=== PATIENT | male | born 1950 | race Caucasian/White ===

== ENCOUNTER 2023-01-11 12:09 | Inpatient (IN) | payer MEDICARE, MEDICAID ==
[~2023-01-11] VITALS: Ht 172.7 cm; Wt 98.0 kg
[~2023-01-11 12:09] MED LIST: CHOL10002 PO; HYDR12.5 PO; IBUP-1985 PO; OMEP20CA15 PO; POTA10CA85 PO; TRAM50TA2 PO
[2023-01-11 13:42] LABS: BASOPHILS % (AUTO) 0.6 % (0-1); EOSINOPHILS # (AUTO) 0.1 X10'3 (0-0.9); EOSINOPHILS % (AUTO) 1.6 % (0-6); HEMATOCRIT 37.8 % (42.0-52.0); HEMOGLOBIN 13.1 g/dl (14.0-17.9); LYMPHOCYTES # (AUTO) 0.7 X10'3 (1.1-4.8); LYMPHOCYTES % (AUTO) 13.9 % (21-51); MEAN CORPUSCULAR HEMOGLOBIN 32.3 PG (27.0-31.0); MEAN CORPUSCULAR HGB CONC 34.7 g/dL (33.0-36.5); MEAN CORPUSCULAR VOLUME 93.1 FL (78-98); MEAN PLATELET VOLUME 7.3 FL (7.4-10.4); MONOCYTES # (AUTO) 0.7 X10'3 (0-0.9); MONOCYTES % (AUTO) 14.2 % (2-12); NEUTROPHILS # (AUTO) 3.5 X10'3 (1.8-7.7); NEUTROPHILS % (AUTO) 69.7 % (42-75); PLATELET COUNT 182 X10'3 (140-440); RED BLOOD COUNT 4.06 X10'6 (4.70-6.10); RED CELL DISTRIBUTION WIDTH 15.1 % (11.5-14.5)
[2023-01-11 13:55] LABS: ALANINE AMINOTRANSFERASE 49 U/L (12-78); ALBUMIN 2.4 G/DL (3.4-5.0); ALBUMIN/GLOBULIN RATIO 0.5 (1.1-1.5); ALKALINE PHOSPHATASE 284 IU/L (46-116); ANION GAP 7 (8-16); ASPARTATE AMINO TRANSFERASE 61 U/L (10-37); BILIRUBIN,TOTAL 3.1 MG/DL (0.1-1.0); BLOOD UREA NITROGEN 23 MG/DL (7-18); BUN/CREATININE RATIO 23.5 (10.0-20.0); CALCIUM 8.9 MG/DL (8.5-10.1); CHLORIDE 98 MMOL/L (99-107); CREATININE 0.98 MG/DL (0.60-1.10); GLUCOSE 88 MG/DL (70-104); LIPASE 47 U/L (16-77); MAGNESIUM 1.7 MG/DL (1.5-2.4); POTASSIUM 3.3 MMOL/L (3.5-5.1); SODIUM 135 MMOL/L (135-145); TOTAL CARBON DIOXIDE 29.8 MMOL/L (24-32); TOTAL PROTEIN 6.9 G/DL (6.4-8.2); eCRCL 68 ML/MIN; eGFR 76 ML/MIN
[2023-01-11 13:59] LABS: ETHANOL < 10 MG/DL (<10)
[2023-01-11] MEDS ORDERED: iohexol 300mg/ml 100ml inj. ONE (14:22)
[2023-01-11 14:55] LABS: BILIRUBIN,URINE SMALL (Neg); CLARITY,URINE CLEAR (Clear); COLOR,URINE YELLOW (Yellow); GLUCOSE, URINE NEGATIVE (Neg); KETONES,URINE 15 mg/dl (Neg); LEUKOCYTE ESTERASE ,URINE NEGATIVE (Neg); NITRITES, URINE NEGATIVE (Neg); OCCULT BLOOD,URINE TRACE-INTACT (Neg); PROTEIN,URINE TRACE mg/dl (Neg)
[2023-01-11 14:58] LABS: UA COLLECTION TYPE URINAL
[2023-01-11 14:59] LABS: BACTERIA,URINE NONE SEEN /HPF (Neg); MUCUS STRANDS FEW /LPF (Neg); RBC,URINE 0-2 /HPF (0-2); SQUAMOUS EPITHELIAL CELL,UR NONE SEEN /LPF (FEW); WBC,URINE 0-4 /HPF (0-4)
[2023-01-11] MEDS ORDERED: LIDOcaine 1% 30ml preserv. free vial SQ STA (15:11)
[2023-01-11 15:49] LABS: APTT 33 SECONDS (22-32); INR 1.3 INR; PROTHROMBIN TIME 13.3 SECONDS (9.0-12.0)
[2023-01-11] MEDS ORDERED: magnesium Cl slow-release 64mg tablet PO PRN (16:15)
[2023-01-11] MEDS ORDERED: morphine 2 MG/ML inj. syringe IV PRN (16:15)
[2023-01-11] MEDS ORDERED: potassium Cl 20 mEq SR tablet PO PRN (16:15)
[2023-01-11] MEDS ORDERED: acetaminophen 325mg tablet PO PRN ×2 (16:15)
[2023-01-11] MEDS ORDERED: magnesium 4gm in 100ml NS 100 ML IV PRN (16:15)
[2023-01-11] MEDS ORDERED: potassium Cl 40MEQ/1/2NS 520ml 520 ML IV PRN (16:15)
[2023-01-11] MEDS ORDERED: magnesium 2GM in 50ml NS 50 ML IV PRN (16:15)
[2023-01-11] MEDS ORDERED: ondansetron/PF 4mg/2ml inj IV PRN (16:15)
[2023-01-11] MEDS ORDERED: LORazepam 2 mg/ml vial IV PRN (16:20)
[2023-01-11] MEDS ORDERED: CefTRIAXone 2gm/D5W 50ml BAG 50 ML IV ONE (16:20)
[2023-01-11] MEDS ORDERED: LORazepam 1 MG tablet PO PRN (16:20)
[2023-01-11] MEDS ORDERED: albumin (human) 25% 100 ML IV solution IV ONE (16:55)
[2023-01-11] MEDS: furosemide 40mg/4ml inj IV SCH ×3 (17:00→23:30)
[2023-01-11] MEDS: spironolactone 25 MG tablet PO SCH (18:10)
[2023-01-11] MEDS: heparin, porcine 5000 units/ml vial SQ SCH ×2 (20:00→23:30)
[2023-01-11 21:11] LABS: GLUCOSE,BODY FLUID 100 MG/DL; LDH,BODY FLUID 43 U/L
[2023-01-11 21:23] LABS: TOTAL PROTEIN,BODY FLUID < 2.0 G/DL
[2023-01-11 22:00] VITALS: BP 107/64; PULSE 91; RESP 16; TEMP 98.6; O2SAT 96
[2023-01-11 22:30] LABS: BFAPPEAR CLEAR; BFCOLOR YELLOW; BFSOURCE ASCITES FLD; BFVOLUME 20 ML
[2023-01-11 22:31] LABS: BF MESOTHELIAL CELLS FEW; BF RBC COUNT 11 /CU MM; BF WBC COUNT 17 /CU MM (0-1000); LYMPHOCYTES,BODY FLUID 79 %; MONOCYTES,BODY FLUID 14 %; NEUTROPHILS,BODY FLUID 7 %
[2023-01-11 23:00] VITALS: RESP 18; O2SAT 97
[2023-01-12] VITALS (7 sets, daily range): BP systolic 95–121; BP diastolic 55–76; PULSE 74–101; RESP 13–21; TEMP 97.3–98.7; O2SAT 95–99
[2023-01-12 07:56] LABS: BASOPHILS % (AUTO) 0.7 % (0-1); EOSINOPHILS # (AUTO) 0.1 X10'3 (0-0.9); EOSINOPHILS % (AUTO) 1.9 % (0-6); HEMATOCRIT 37.9 % (42.0-52.0); HEMOGLOBIN 12.8 g/dl (14.0-17.9); LYMPHOCYTES # (AUTO) 0.7 X10'3 (1.1-4.8); LYMPHOCYTES % (AUTO) 14.1 % (21-51); MEAN CORPUSCULAR HEMOGLOBIN 31.4 PG (27.0-31.0); MEAN CORPUSCULAR HGB CONC 33.9 g/dL (33.0-36.5); MEAN CORPUSCULAR VOLUME 92.6 FL (78-98); MEAN PLATELET VOLUME 7.7 FL (7.4-10.4); MONOCYTES # (AUTO) 0.7 X10'3 (0-0.9); MONOCYTES % (AUTO) 14.1 % (2-12); NEUTROPHILS # (AUTO) 3.7 X10'3 (1.8-7.7); NEUTROPHILS % (AUTO) 69.2 % (42-75); PLATELET COUNT 170 X10'3 (140-440); RED BLOOD COUNT 4.09 X10'6 (4.70-6.10); RED CELL DISTRIBUTION WIDTH 15.6 % (11.5-14.5); WHITE BLOOD COUNT 5.3 X10'3 (4.5-11.0)
[2023-01-12] MEDS ORDERED: thiamine 100mg tablet PO SCH (08:00)
[2023-01-12] MEDS ORDERED: folic acid 1mg tablet PO SCH (08:00)
[2023-01-12] MEDS ORDERED: multivitamins, therapeutics tablet PO SCH (08:00)
[2023-01-12 08:07] LABS: ALANINE AMINOTRANSFERASE 56 U/L (12-78); ALBUMIN 2.4 G/DL (3.4-5.0); ALBUMIN/GLOBULIN RATIO 0.6 (1.1-1.5); ALKALINE PHOSPHATASE 269 IU/L (46-116); ANION GAP 7 (8-16); ASPARTATE AMINO TRANSFERASE 79 U/L (10-37); BILIRUBIN,TOTAL 2.5 MG/DL (0.1-1.0); BLOOD UREA NITROGEN 21 MG/DL (7-18); BUN/CREATININE RATIO 22.3 (10.0-20.0); CALCIUM 8.5 MG/DL (8.5-10.1); CHLORIDE 98 MMOL/L (99-107); CREATININE 0.94 MG/DL (0.60-1.10); GLUCOSE 88 MG/DL (70-104); MAGNESIUM 1.6 MG/DL (1.5-2.4); PHOSPHORUS 2.8 MG/DL (2.3-4.5); SODIUM 135 MMOL/L (135-145); TOTAL CARBON DIOXIDE 29.7 MMOL/L (24-32); TOTAL PROTEIN 6.5 G/DL (6.4-8.2); eCRCL 71 ML/MIN; eGFR 79 ML/MIN
[2023-01-12 08:09] LABS: POTASSIUM 2.9 MMOL/L (3.5-5.1)
[2023-01-12] MEDS: pantoprazole 40mg Tablet.DR PO SCH (08:32)
[2023-01-12] MEDS: potassium Cl 20 mEq SR tablet PO PRN ×3 (08:32→17:51)
[2023-01-12] MEDS: heparin, porcine 5000 units/ml vial SQ SCH ×2 (08:33→20:45)
[2023-01-12] MEDS: furosemide 40mg/4ml inj IV SCH ×2 (10:43→20:44)
[2023-01-12] MEDS: spironolactone 25 MG tablet PO SCH (10:48)
[2023-01-12] MEDS ORDERED: TRAM50TA2 PO (15:57)
[2023-01-12] MEDS ORDERED: OMEP40CA21 PO (15:57)
[2023-01-12] MEDS ORDERED: HYDR12.55 (15:57)
[2023-01-12] MEDS: traMADol 50MG tablet PO PRN (17:54)
[2023-01-13] VITALS (9 sets, daily range): BP systolic 107–134; BP diastolic 59–80; PULSE 64–85; RESP 15–18; TEMP 97.9–98.1; O2SAT 93–99
[2023-01-13] MEDS: traMADol 50MG tablet PO PRN (00:04)
[2023-01-13 07:28] LABS: BASOPHILS % (AUTO) 0.6 % (0-1); EOSINOPHILS # (AUTO) 0.1 X10'3 (0-0.9); EOSINOPHILS % (AUTO) 1.8 % (0-6); HEMOGLOBIN 12.4 g/dl (14.0-17.9); LYMPHOCYTES # (AUTO) 0.9 X10'3 (1.1-4.8); LYMPHOCYTES % (AUTO) 14.4 % (21-51); MEAN CORPUSCULAR HEMOGLOBIN 32.1 PG (27.0-31.0); MEAN CORPUSCULAR HGB CONC 34.5 g/dL (33.0-36.5); MEAN PLATELET VOLUME 7.6 FL (7.4-10.4); MONOCYTES % (AUTO) 15.7 % (2-12); NEUTROPHILS # (AUTO) 4.1 X10'3 (1.8-7.7); NEUTROPHILS % (AUTO) 67.5 % (42-75); PLATELET COUNT 148 X10'3 (140-440); RED BLOOD COUNT 3.87 X10'6 (4.70-6.10)
[2023-01-13 07:53] LABS: ALANINE AMINOTRANSFERASE 68 U/L (12-78); ALBUMIN 2.2 G/DL (3.4-5.0); ALBUMIN/GLOBULIN RATIO 0.6 (1.1-1.5); ALKALINE PHOSPHATASE 261 IU/L (46-116); ANION GAP 5 (8-16); ASPARTATE AMINO TRANSFERASE 80 U/L (10-37); BILIRUBIN,TOTAL 2.3 MG/DL (0.1-1.0); BLOOD UREA NITROGEN 21 MG/DL (7-18); BUN/CREATININE RATIO 21.4 (10.0-20.0); CALCIUM 8.2 MG/DL (8.5-10.1); CHLORIDE 100 MMOL/L (99-107); CREATININE 0.98 MG/DL (0.60-1.10); GLUCOSE 101 MG/DL (70-104); MAGNESIUM 1.4 MG/DL (1.5-2.4); PHOSPHORUS 2.7 MG/DL (2.3-4.5); POTASSIUM 3.7 MMOL/L (3.5-5.1); SODIUM 133 MMOL/L (135-145); TOTAL CARBON DIOXIDE 28.3 MMOL/L (24-32); TOTAL PROTEIN 6.2 G/DL (6.4-8.2); eCRCL 68 ML/MIN; eGFR 76 ML/MIN
[2023-01-13 09:02] LABS: PLATELET ESTIMATE NORMAL; TOTAL CELLS COUNTED 100
[2023-01-13] MEDS: pantoprazole 40mg Tablet.DR PO SCH (09:26)
[2023-01-13] MEDS: furosemide 40mg/4ml inj IV SCH (09:27)
[2023-01-13] MEDS: spironolactone 25 MG tablet PO SCH (09:27)
[2023-01-13] MEDS: heparin, porcine 5000 units/ml vial SQ SCH (09:28)
[2023-01-13] MEDS ORDERED: albumin (human) 25% 100 ML IV solution IV ONE (11:00)
[2023-01-13] MEDS ORDERED: SPIR25TA PO (14:53)
[2023-01-13] MEDS ORDERED: FURO20TA4 PO (14:53)
[2023-01-13] MEDS ORDERED: MULT-1085 PO (14:55)
[2023-01-14 08:17] LABS: AFP,SERUM, TUMOR MARKER 76.9 ng/mL (0.0-8.4)
[2023-01-14 14:44] LABS: HEP B CORE AB, IGM Negative (Negative); HEPATITIS C VIRUS ANTIBODY Reactive (Non Reactive)
[2023-01-15 21:42] LABS: HBV IU/mL HBV DNA not detected IU/mL (.)
== END 2023-01-13 16:10 | disposition home or self-care (01) | DRG 436 ==
LOC: ER 12:09 → ED HOLD 16:19 → PCU 3S 21:45
PROVIDERS: ADMIT Internal Medicine; ATTEND Internal Medicine
PROC: BW211ZZ Computerized Tomography (CT Scan) of Abdomen and Pelvis using Low Osmolar Contrast (ICD-10-PCS; 2023-01-11)
PROC: 0W9G3ZZ Drainage of Peritoneal Cavity, Percutaneous Approach (ICD-10-PCS; principal; 2023-01-13)
DX: C22.0 Liver cell carcinoma (principal); E44.0 Moderate protein-calorie malnutrition; K76.6 Portal hypertension; N17.9 Acute kidney failure, unspecified; R18.8 Other ascites; K74.69 Other cirrhosis of liver; R74.01 Elevation of levels of liver transaminase levels; K76.9 Liver disease, unspecified; I12.9 Hypertensive chronic kidney disease with stage 1 through stage 4 chronic kidney disease, or unspecified chronic kidney disease; N18.2 Chronic kidney disease, stage 2 (mild); E87.6 Hypokalemia; E87.8 Other disorders of electrolyte and fluid balance, not elsewhere classified; F10.11 Alcohol abuse, in remission; F19.11 Other psychoactive substance abuse, in remission; K80.20 Calculus of gallbladder without cholecystitis without obstruction; Z88.2 Allergy status to sulfonamides; Z87.891 Personal history of nicotine dependence
CPT/HCPCS: 36415; 49083; 74177; 76700; 80053; 80320; 81001; 82103; 82140; 82945; 82977; 83605; 83615; 83690; 83735; 84100; 84157; 85007; 85025; 85610; 85651; 85730; 86705; 86803; 87040; 87070; 87075; 87081; 87517; 87522; 89051; 93005; 97116; 97161; 97530; 99285; G0378; J0696; J1644; J1940; J3490; J7040; P9047; Q9967

== ENCOUNTER 2023-01-24 11:47 | Emergency (ER) | payer MEDICARE, MEDICAID ==
[~2023-01-24] VITALS: Ht 175.3 cm; Wt 83.1 kg
[~2023-01-24 11:47] MED LIST changes: -CHOL10002 PO; +FURO20TA4 PO; -HYDR12.5 PO; -IBUP-1985 PO; +MULT-1085 PO; -POTA10CA85 PO; +SPIR25TA PO
--- NOTE | 2023-01-24 13:48 | NUR ---
AWAITING MSE FROM PROVIDER.
--- NOTE | 2023-01-24 14:02 | NUR ---
[facility] COMPLETED PATIENT TO FTL.
--- NOTE | 2023-01-24 14:11 | NUR ---
FTL FULL, PT IN MAIN LOBBY AWAITING ROOM.
[2023-01-24] MEDS ORDERED: LIDOcaine 1% W/epiNEPHrine 1:100,000 20ml vial SQ ONE (19:05)
[2023-01-24] MEDS ORDERED: LIDOCAINE 1%/EPI 1:100,000 inj. 10 ML multi-dose vial SQ ONE (19:15)
[2023-01-24 19:38] LABS: BASOPHILS # (AUTO) 0.1 X10'3 (0-0.2); EOSINOPHILS # (AUTO) 0.1 X10'3 (0-0.9); EOSINOPHILS % (AUTO) 0.6 % (0-6); HEMATOCRIT 39.6 % (42.0-52.0); HEMOGLOBIN 13.7 g/dl (14.0-17.9); LYMPHOCYTES % (AUTO) 10.8 % (21-51); MEAN CORPUSCULAR HEMOGLOBIN 32.2 PG (27.0-31.0); MEAN CORPUSCULAR HGB CONC 34.5 g/dL (33.0-36.5); MEAN CORPUSCULAR VOLUME 93.3 FL (78-98); MEAN PLATELET VOLUME 7.9 FL (7.4-10.4); MONOCYTES # (AUTO) 1.2 X10'3 (0-0.9); MONOCYTES % (AUTO) 12.3 % (2-12); NEUTROPHILS # (AUTO) 7.1 X10'3 (1.8-7.7); NEUTROPHILS % (AUTO) 75.3 % (42-75); PLATELET COUNT 312 X10'3 (140-440); RED BLOOD COUNT 4.25 X10'6 (4.70-6.10); RED CELL DISTRIBUTION WIDTH 16.5 % (11.5-14.5); WHITE BLOOD COUNT 9.4 X10'3 (4.5-11.0)
[2023-01-24 20:02] LABS: ALANINE AMINOTRANSFERASE 180 U/L (12-78); ALBUMIN 2.2 G/DL (3.4-5.0); ALKALINE PHOSPHATASE 528 IU/L (46-116); ANION GAP 8 (8-16); ASPARTATE AMINO TRANSFERASE 91 U/L (10-37); BILIRUBIN,TOTAL 11.7 MG/DL (0.1-1.0); BLOOD UREA NITROGEN 25 MG/DL (7-18); BUN/CREATININE RATIO 25.3 (10.0-20.0); CALCIUM 8.8 MG/DL (8.5-10.1); CHLORIDE 94 MMOL/L (99-107); CREATININE 0.99 MG/DL (0.60-1.10); GLUCOSE 96 MG/DL (70-104); LIPASE 48 U/L (16-77); SODIUM 129 MMOL/L (135-145); TOTAL CARBON DIOXIDE 27.5 MMOL/L (24-32); eCRCL 69 ML/MIN; eGFR 75 ML/MIN
[2023-01-24 20:06] LABS: ALBUMIN/GLOBULIN RATIO 0.4 (1.1-1.5); POTASSIUM 3.6 MMOL/L (3.5-5.1); TOTAL PROTEIN 7.1 G/DL (6.4-8.2)
[2023-01-24] MEDS ORDERED: albumin (human) 25% 100 ML IV solution IV ONE (20:20)
[2023-01-24 22:53] VITALS: BP 115/62; PULSE 80; RESP 16; TEMP 97.8; O2SAT 100
--- NOTE | 2023-01-25 04:09 | NUR ---
I have reviewed and agree with all assessments performed and documented by Meri.
== END 2023-01-24 22:54 | disposition home or self-care (01) ==
LOC: ER 11:48
DX: R18.8 Other ascites (principal); K74.60 Unspecified cirrhosis of liver; I10 Essential (primary) hypertension; Z88.2 Allergy status to sulfonamides; Z79.899 Other long term (current) drug therapy
CPT/HCPCS: 36415; 49083; 80053; 82140; 83690; 85025; 96365; 99285; J7050; P9047

== ENCOUNTER 2023-02-10 17:32 | Emergency (ER) | payer MEDICARE, MEDICAID ==
[~2023-02-10] VITALS: Ht 172.7 cm; Wt 83.0 kg
[2023-02-10 19:02] LABS: BASOPHILS # (AUTO) 0.1 X10'3 (0-0.2); BASOPHILS % (AUTO) 0.8 % (0-1); EOSINOPHILS # (AUTO) 0.1 X10'3 (0-0.9); EOSINOPHILS % (AUTO) 1.7 % (0-6); HEMATOCRIT 31.9 % (42.0-52.0); HEMOGLOBIN 10.9 g/dl (14.0-17.9); LYMPHOCYTES # (AUTO) 0.8 X10'3 (1.1-4.8); LYMPHOCYTES % (AUTO) 13.2 % (21-51); MEAN CORPUSCULAR HEMOGLOBIN 33.2 PG (27.0-31.0); MEAN CORPUSCULAR HGB CONC 34.2 g/dL (33.0-36.5); MEAN CORPUSCULAR VOLUME 97.2 FL (78-98); MEAN PLATELET VOLUME 7.3 FL (7.4-10.4); MONOCYTES # (AUTO) 1.1 X10'3 (0-0.9); MONOCYTES % (AUTO) 17.3 % (2-12); NEUTROPHILS # (AUTO) 4.1 X10'3 (1.8-7.7); PLATELET COUNT 158 X10'3 (140-440); RED BLOOD COUNT 3.28 X10'6 (4.70-6.10); RED CELL DISTRIBUTION WIDTH 18.8 % (11.5-14.5); WHITE BLOOD COUNT 6.2 X10'3 (4.5-11.0)
[2023-02-10 19:11] LABS: ALANINE AMINOTRANSFERASE 92 U/L (12-78); ALKALINE PHOSPHATASE 470 IU/L (46-116); ANION GAP 5 (8-16); ASPARTATE AMINO TRANSFERASE 81 U/L (10-37); BILIRUBIN,TOTAL 3.8 MG/DL (0.1-1.0); BLOOD UREA NITROGEN 29 MG/DL (7-18); BUN/CREATININE RATIO 28.4 (10.0-20.0); CALCIUM 8.4 MG/DL (8.5-10.1); CHLORIDE 98 MMOL/L (99-107); CREATININE 1.02 MG/DL (0.60-1.10); GLUCOSE 78 MG/DL (70-104); LIPASE 46 U/L (16-77); POTASSIUM 3.4 MMOL/L (3.5-5.1); SODIUM 130 MMOL/L (135-145); TOTAL CARBON DIOXIDE 26.9 MMOL/L (24-32); eCRCL 65 ML/MIN; eGFR 72 ML/MIN
[2023-02-10 19:24] LABS: ALBUMIN/GLOBULIN RATIO 0.4 (1.1-1.5); TOTAL PROTEIN 7.5 G/DL (6.4-8.2)
[2023-02-10 20:28] LABS: BILIRUBIN,URINE NEGATIVE (Neg); CLARITY,URINE CLEAR (Clear); GLUCOSE, URINE NEGATIVE (Neg); KETONES,URINE NEGATIVE (Neg); LEUKOCYTE ESTERASE ,URINE NEGATIVE (Neg); NITRITES, URINE NEGATIVE (Neg); OCCULT BLOOD,URINE NEGATIVE (Neg); PROTEIN,URINE NEGATIVE (Neg)
[2023-02-10 20:38] LABS: COLOR,URINE DARK YELLOW (Yellow); UA COLLECTION TYPE CLN CATCH MIDSTREAM
[2023-02-10 21:19] VITALS: BP 111/63; PULSE 72; RESP 16; TEMP 98.6; O2SAT 98
[2023-02-10 22:14] LABS: ANISOCYTOSIS 2+; PLATELET ESTIMATE NORMAL; TARGET CELLS FEW; TOTAL CELLS COUNTED 100
== END 2023-02-10 21:21 | disposition home or self-care (01) ==
LOC: ER 17:33
DX: R18.8 Other ascites (principal); I10 Essential (primary) hypertension; K74.60 Unspecified cirrhosis of liver; Z88.8 Allergy status to other drugs, medicaments and biological substances; Z88.1 Allergy status to other antibiotic agents; Z79.899 Other long term (current) drug therapy
CPT/HCPCS: 36415; 80053; 81003; 82140; 83690; 85007; 85025; 99283

== ENCOUNTER 2023-02-11 07:09 | Emergency (ER) | payer MEDICARE, MEDICAID ==
[~2023-02-11] VITALS: Ht 177.8 cm; Wt 90.2 kg
[2023-02-11 08:19] LABS: BASOPHILS % (AUTO) 0.8 % (0-1); EOSINOPHILS # (AUTO) 0.1 X10'3 (0-0.9); EOSINOPHILS % (AUTO) 1.7 % (0-6); HEMATOCRIT 30.7 % (42.0-52.0); HEMOGLOBIN 10.6 g/dl (14.0-17.9); LYMPHOCYTES # (AUTO) 0.7 X10'3 (1.1-4.8); LYMPHOCYTES % (AUTO) 11.7 % (21-51); MEAN CORPUSCULAR HEMOGLOBIN 33.4 PG (27.0-31.0); MEAN CORPUSCULAR HGB CONC 34.5 g/dL (33.0-36.5); MEAN CORPUSCULAR VOLUME 96.8 FL (78-98); MEAN PLATELET VOLUME 7.3 FL (7.4-10.4); NEUTROPHILS # (AUTO) 4.1 X10'3 (1.8-7.7); NEUTROPHILS % (AUTO) 68.8 % (42-75); PLATELET COUNT 165 X10'3 (140-440); RED BLOOD COUNT 3.17 X10'6 (4.70-6.10); RED CELL DISTRIBUTION WIDTH 19.4 % (11.5-14.5); WHITE BLOOD COUNT 5.9 X10'3 (4.5-11.0)
[2023-02-11 08:35] LABS: BILIRUBIN,URINE NEGATIVE (Neg); CLARITY,URINE CLEAR (Clear); COLOR,URINE YELLOW (Yellow); GLUCOSE, URINE NEGATIVE (Neg); KETONES,URINE NEGATIVE (Neg); LEUKOCYTE ESTERASE ,URINE NEGATIVE (Neg); NITRITES, URINE NEGATIVE (Neg); OCCULT BLOOD,URINE NEGATIVE (Neg); PROTEIN,URINE NEGATIVE (Neg)
[2023-02-11 08:37] LABS: ALANINE AMINOTRANSFERASE 84 U/L (12-78); ALBUMIN 1.9 G/DL (3.4-5.0); ALKALINE PHOSPHATASE 441 IU/L (46-116); ANION GAP 2 (8-16); ASPARTATE AMINO TRANSFERASE 70 U/L (10-37); BILIRUBIN,TOTAL 3.5 MG/DL (0.1-1.0); BLOOD UREA NITROGEN 29 MG/DL (7-18); BUN/CREATININE RATIO 26.6 (10.0-20.0); CALCIUM 8.2 MG/DL (8.5-10.1); CHLORIDE 100 MMOL/L (99-107); CREATININE 1.09 MG/DL (0.60-1.10); GLUCOSE 131 MG/DL (70-104); LIPASE 46 U/L (16-77); POTASSIUM 3.6 MMOL/L (3.5-5.1); SODIUM 131 MMOL/L (135-145); TOTAL CARBON DIOXIDE 28.8 MMOL/L (24-32); eCRCL 65 ML/MIN; eGFR 67 ML/MIN
[2023-02-11 08:41] LABS: ALBUMIN/GLOBULIN RATIO 0.4 (1.1-1.5); TOTAL PROTEIN 6.5 G/DL (6.4-8.2)
[2023-02-11 08:53] LABS: UA COLLECTION TYPE CLN CATCH MIDSTREAM
[2023-02-11] MEDS ORDERED: piperacillin/tazo 4.5gm/100ml 100 ML IV ONE (09:08)
[2023-02-11 10:03] LABS: ANISOCYTOSIS 2+; PLATELET ESTIMATE NORMAL; TOTAL CELLS COUNTED 100
[2023-02-11 10:08] LABS: APTT 30 SECONDS (22-32); INR 1.2 INR; PROTHROMBIN TIME 12.5 SECONDS (9.0-12.0)
[2023-02-11] MEDS ORDERED: albumin (human) 25% 100 ML IV solution IV ONE (15:15)
[2023-02-11 17:08] VITALS: BP 101/61; PULSE 85; RESP 16; TEMP 98.2; O2SAT 97
== END 2023-02-11 17:10 | disposition home or self-care (01) ==
LOC: ER 07:10
DX: R18.8 Other ascites (principal)
CPT/HCPCS: 36415; 49082; 80053; 81003; 83605; 83690; 85007; 85025; 85610; 85730; 87040; 99285; P9047

== ENCOUNTER 2023-02-19 15:25 | Inpatient (IN) | payer MEDICARE, MEDICAID ==
[~2023-02-19] VITALS: Ht 170.2 cm; Wt 83.0 kg
[2023-02-19 17:03] LABS: BASOPHILS # (AUTO) 0.1 X10'3 (0-0.2); BASOPHILS % (AUTO) 0.5 % (0-1); EOSINOPHILS % (AUTO) 0.1 % (0-6); HEMATOCRIT 33.8 % (42.0-52.0); HEMOGLOBIN 11.2 g/dl (14.0-17.9); LYMPHOCYTES % (AUTO) 7.6 % (21-51); MEAN CORPUSCULAR HEMOGLOBIN 32.3 PG (27.0-31.0); MEAN CORPUSCULAR HGB CONC 33.2 g/dL (33.0-36.5); MEAN CORPUSCULAR VOLUME 97.5 FL (78-98); MEAN PLATELET VOLUME 7.6 FL (7.4-10.4); MONOCYTES # (AUTO) 2.3 X10'3 (0-0.9); MONOCYTES % (AUTO) 17.7 % (2-12); NEUTROPHILS # (AUTO) 9.5 X10'3 (1.8-7.7); NEUTROPHILS % (AUTO) 74.1 % (42-75); PLATELET COUNT 308 X10'3 (140-440); RED BLOOD COUNT 3.47 X10'6 (4.70-6.10); RED CELL DISTRIBUTION WIDTH 19.3 % (11.5-14.5); WHITE BLOOD COUNT 12.8 X10'3 (4.5-11.0)
[2023-02-19 17:18] LABS: ALANINE AMINOTRANSFERASE 410 U/L (12-78); ALBUMIN 1.8 G/DL (3.4-5.0); ALKALINE PHOSPHATASE 405 IU/L (46-116); ANION GAP 10 (8-16); ASPARTATE AMINO TRANSFERASE 465 U/L (10-37); BILIRUBIN,TOTAL 5.4 MG/DL (0.1-1.0); BLOOD UREA NITROGEN 107 MG/DL (7-18); BUN/CREATININE RATIO 32.8 (10.0-20.0); CALCIUM 8.5 MG/DL (8.5-10.1); CHLORIDE 94 MMOL/L (99-107); CREATININE 3.26 MG/DL (0.60-1.10); GLUCOSE 137 MG/DL (70-104); LIPASE 35 U/L (16-77); SODIUM 126 MMOL/L (135-145); TOTAL CARBON DIOXIDE 22.3 MMOL/L (24-32); eCRCL 19 ML/MIN; eGFR 19 ML/MIN
[2023-02-19 17:22] LABS: ALBUMIN/GLOBULIN RATIO 0.4 (1.1-1.5); POTASSIUM 5.5 MMOL/L (3.5-5.1); TOTAL PROTEIN 6.8 G/DL (6.4-8.2)
[2023-02-19 17:29] LABS: APTT 32 SECONDS (22-32); INR 1.3 INR; PROTHROMBIN TIME 13.3 SECONDS (9.0-12.0)
[2023-02-19 17:45] LABS: ANISOCYTOSIS 2+; PLATELET ESTIMATE NORMAL; TOTAL CELLS COUNTED 100
[2023-02-19 20:52] LABS: PRO BRAIN NATRIURETIC PEPTIDE 1074 PG/ML (0-125)
[2023-02-19 22:09] LABS: BILIRUBIN,URINE SMALL (Neg); CLARITY,URINE CLEAR (Clear); GLUCOSE, URINE NEGATIVE (Neg); KETONES,URINE NEGATIVE (Neg); LEUKOCYTE ESTERASE ,URINE NEGATIVE (Neg); NITRITES, URINE NEGATIVE (Neg); OCCULT BLOOD,URINE NEGATIVE (Neg); PH,URINE 5.5 (4.8-8.0); PROTEIN,URINE NEGATIVE (Neg); UROBILINOGEN,URINE 0.2 E.U/dL (0.2-1.0)
[2023-02-19 22:13] LABS: COLOR,URINE DARK YELLOW (Yellow); UA COLLECTION TYPE URINAL
[2023-02-19] MEDS ORDERED: ondansetron/PF 4mg/2ml inj IV PRN (22:25)
[2023-02-20] VITALS (7 sets, daily range): BP systolic 97–106; BP diastolic 51–63; PULSE 71–87; RESP 13–24; TEMP 97–97.5; O2SAT 96–99
[2023-02-20] MEDS ORDERED: morphine 4 MG/ML inj SYRINge IV ONE (02:20)
[2023-02-20] MEDS ORDERED: ondansetron 4mg rapidly disintigrating tab PO PRN (04:40)
[2023-02-20] MEDS ORDERED: ondansetron/PF 4mg/2ml inj IV PRN (04:40)
[2023-02-20] MEDS ORDERED: magnesium hydroxide 30ml (MOM) UD suspension PO PRN (04:40)
[2023-02-20] MEDS ORDERED: bisacodyl 10mg suppository rectal RC PRN (04:40)
[2023-02-20] MEDS ORDERED: mag hydrox/Alum hydrox/simeth 30ml oral suspension PO PRN (04:40)
[2023-02-20] MEDS ORDERED: diphenhydrAMINE 50 mg/ml inj IV PRN (04:40)
[2023-02-20] MEDS ORDERED: acetaminophen 650mg rectal suppository RC PRN (04:40)
[2023-02-20] MEDS ORDERED: acetaminophen 325mg tablet PO PRN ×2 (04:40)
[2023-02-20] MEDS ORDERED: diphenhydrAMINE 25mg capsule PO PRN (04:40)
[2023-02-20] MEDS ORDERED: sodium polystyrene sulfonate 15gm/60ml oral suspension PO ONE (04:45)
[2023-02-20] MEDS ORDERED: dextrose 50%-water 50ml dispensing syringe IV ONE (04:45)
[2023-02-20] MEDS ORDERED: CALCIUM GLUC 1gm/50ml NACL,iso 50 ML IV PRN (04:45)
[2023-02-20] MEDS ORDERED: insulin regular, human 10 units/0.1 ml syringe IV ONE (04:45)
[2023-02-20] MEDS ORDERED: sodium bicarbonate (8.4%) 1 mEq/ml syringe IV ONE (04:45)
[2023-02-20] MEDS: normal saline 1000ml 1,000 ML IV SCH ×2 (04:56→14:00)
[2023-02-20 05:39] LABS: THYROID STIMULATING HORMONE 1.24 ulU/ml (0.34-4.50)
[2023-02-20 05:57] LABS: PHOSPHORUS 6.7 MG/DL (2.3-4.5); POTASSIUM 5.3 MMOL/L (3.5-5.1)
[2023-02-20] MEDS ORDERED: docusate sod 100mg capsule PO SCH (08:00)
[2023-02-20] MEDS: CefTRIAXone/D5W-Rocephin 1gm 50 ML IV SCH (08:17)
[2023-02-20] MEDS: morphine 2 MG/ML inj. syringe IV PRN ×2 (11:30→20:28)
[2023-02-20] MEDS ORDERED: LIDOcaine 1% (10mg/ml)w/preservative inj. 20ml MDV ONE (11:41)
[2023-02-20] MEDS: albumin (human) 25% 100 ML IV solution IV ONE ×2 (12:30→12:51)
[2023-02-20 13:19] LABS: GLUCOSE,BODY FLUID 123 MG/DL; LDH,BODY FLUID 238 U/L
[2023-02-20 13:24] LABS: BASOPHILS # (AUTO) 0.1 X10'3 (0-0.2); BASOPHILS % (AUTO) 0.3 % (0-1); EOSINOPHILS % (AUTO) 0 % (0-6); HEMATOCRIT 30.1 % (42.0-52.0); LYMPHOCYTES # (AUTO) 0.4 X10'3 (1.1-4.8); LYMPHOCYTES % (AUTO) 2.1 % (21-51); MEAN CORPUSCULAR HEMOGLOBIN 32.6 PG (27.0-31.0); MEAN CORPUSCULAR HGB CONC 33.4 g/dL (33.0-36.5); MEAN CORPUSCULAR VOLUME 97.7 FL (78-98); MEAN PLATELET VOLUME 7.6 FL (7.4-10.4); MONOCYTES # (AUTO) 2.6 X10'3 (0-0.9); MONOCYTES % (AUTO) 14.9 % (2-12); NEUTROPHILS # (AUTO) 14.4 X10'3 (1.8-7.7); NEUTROPHILS % (AUTO) 82.7 % (42-75); PLATELET COUNT 256 X10'3 (140-440); RED BLOOD COUNT 3.08 X10'6 (4.70-6.10); RED CELL DISTRIBUTION WIDTH 19.1 % (11.5-14.5); WHITE BLOOD COUNT 17.4 X10'3 (4.5-11.0)
[2023-02-20 13:27] LABS: TOTAL PROTEIN,BODY FLUID < 2.0 G/DL
[2023-02-20] MEDS: HYDROcodone/acetaminophen 5mg/325mg tablet PO PRN (13:56)
[2023-02-20 14:33] LABS: BFSOURCE OTHER
[2023-02-20 14:34] LABS: BF RBC COUNT 468 /CU MM; BF WBC COUNT 1275 /CU MM (0-1000); BFAPPEAR HAZY; BFCOLOR YELLOW; BFVOLUME 50 ML; LYMPHOCYTES,BODY FLUID 3 %; MONOCYTES,BODY FLUID 2 %; NEUTROPHILS,BODY FLUID 95 %
[2023-02-20] MEDS ORDERED: temazepam 15mg capsule PO PRN (21:00)
[2023-02-21] VITALS (9 sets, daily range): BP systolic 104–125; BP diastolic 55–70; PULSE 74–91; RESP 11–20; TEMP 97.3–98; O2SAT 94–100
[2023-02-21] MEDS: HYDROcodone/acetaminophen 5mg/325mg tablet PO PRN (01:54)
[2023-02-21 06:42] LABS: BASOPHILS % (AUTO) 0.1 % (0-1); EOSINOPHILS # (AUTO) 0.1 X10'3 (0-0.9); EOSINOPHILS % (AUTO) 0.4 % (0-6); HEMATOCRIT 27.5 % (42.0-52.0); HEMOGLOBIN 9.3 g/dl (14.0-17.9); LYMPHOCYTES # (AUTO) 0.6 X10'3 (1.1-4.8); MEAN CORPUSCULAR HEMOGLOBIN 33.1 PG (27.0-31.0); MEAN CORPUSCULAR VOLUME 97.4 FL (78-98); MEAN PLATELET VOLUME 7.5 FL (7.4-10.4); MONOCYTES # (AUTO) 2.2 X10'3 (0-0.9); MONOCYTES % (AUTO) 14.6 % (2-12); NEUTROPHILS # (AUTO) 12.3 X10'3 (1.8-7.7); NEUTROPHILS % (AUTO) 80.9 % (42-75); PLATELET COUNT 189 X10'3 (140-440); RED BLOOD COUNT 2.82 X10'6 (4.70-6.10); RED CELL DISTRIBUTION WIDTH 19.2 % (11.5-14.5); WHITE BLOOD COUNT 15.2 X10'3 (4.5-11.0)
[2023-02-21 07:06] LABS: ALANINE AMINOTRANSFERASE 836 U/L (12-78); ALBUMIN 1.9 G/DL (3.4-5.0); ALKALINE PHOSPHATASE 387 IU/L (46-116); ANION GAP 11 (8-16); ASPARTATE AMINO TRANSFERASE 655 U/L (10-37); BILIRUBIN,TOTAL 5.6 MG/DL (0.1-1.0); BLOOD UREA NITROGEN 125 MG/DL (7-18); BUN/CREATININE RATIO 40.7 (10.0-20.0); CALCIUM 8.2 MG/DL (8.5-10.1); CHLORIDE 97 MMOL/L (99-107); CREATININE 3.07 MG/DL (0.60-1.10); GLUCOSE 135 MG/DL (70-104); SODIUM 129 MMOL/L (135-145); TOTAL CARBON DIOXIDE 20.9 MMOL/L (24-32); eCRCL 21 ML/MIN; eGFR 20 ML/MIN
[2023-02-21 07:07] LABS: ALBUMIN/GLOBULIN RATIO 0.5 (1.1-1.5); TOTAL PROTEIN 5.9 G/DL (6.4-8.2)
[2023-02-21] MEDS: CefTRIAXone/D5W-Rocephin 1gm 50 ML IV SCH (08:00)
[2023-02-21] MEDS: morphine 2 MG/ML inj. syringe IV PRN ×3 (09:18→21:27)
[2023-02-21] MEDS: normal saline 1000ml 1,000 ML IV SCH (14:16)
[2023-02-21 15:07] LABS: ABG BASE EXCESS -3.6 mmol/L (-2.0-2.0); ABG HCO3 20.2 mmol/L (22.0-26.0); ABG OXYGEN SATURATION 95.7 % (94-97); ABG PCO2 (T) 30.8 mmHg (35.0-48.0); ABG PO2 (T) 74.4 mmHg (75.0-100.0); ALLEN'S TEST POSITIVE; FCOHb 0.5 % (0.0-3.9); FHHb 4.3 % (0.0-5.0); FMetHb 0.3 % (0.0-1.5); FO2Hb 94.9 % (94-97); MODE ROOM AIR; PATIENT TEMPERATURE 36.3; TOTAL HEMOGLOBIN 10.7 G/dl (14.0-17.9)
[2023-02-21] MEDS: furosemide 20MG tablet PO SCH (19:34)
[2023-02-22] VITALS (7 sets, daily range): BP systolic 92–98; BP diastolic 54–62; PULSE 74–97; RESP 17–25; TEMP 97.2–98.2; O2SAT 97–99
[2023-02-22] MEDS: morphine 2 MG/ML inj. syringe IV PRN ×4 (01:31→18:49)
[2023-02-22] MEDS: normal saline 1000ml 1,000 ML IV SCH (03:34)
[2023-02-22 06:26] LABS: BASOPHILS % (AUTO) 0.2 % (0-1); EOSINOPHILS % (AUTO) 0.1 % (0-6); HEMATOCRIT 28.6 % (42.0-52.0); HEMOGLOBIN 9.8 g/dl (14.0-17.9); LYMPHOCYTES # (AUTO) 0.6 X10'3 (1.1-4.8); LYMPHOCYTES % (AUTO) 3.5 % (21-51); MEAN CORPUSCULAR HEMOGLOBIN 33.4 PG (27.0-31.0); MEAN CORPUSCULAR HGB CONC 34.3 g/dL (33.0-36.5); MEAN CORPUSCULAR VOLUME 97.5 FL (78-98); MEAN PLATELET VOLUME 7.7 FL (7.4-10.4); MONOCYTES # (AUTO) 2.1 X10'3 (0-0.9); MONOCYTES % (AUTO) 12.3 % (2-12); NEUTROPHILS # (AUTO) 14.3 X10'3 (1.8-7.7); NEUTROPHILS % (AUTO) 83.9 % (42-75); PLATELET COUNT 206 X10'3 (140-440); RED BLOOD COUNT 2.93 X10'6 (4.70-6.10); RED CELL DISTRIBUTION WIDTH 19.2 % (11.5-14.5); WHITE BLOOD COUNT 17.1 X10'3 (4.5-11.0)
[2023-02-22 06:31] LABS: ALANINE AMINOTRANSFERASE 951 U/L (12-78); ALBUMIN 1.6 G/DL (3.4-5.0); ALKALINE PHOSPHATASE 471 IU/L (46-116); ANION GAP 11 (8-16); ASPARTATE AMINO TRANSFERASE 373 U/L (10-37); BILIRUBIN,TOTAL 7.2 MG/DL (0.1-1.0); BLOOD UREA NITROGEN 130 MG/DL (7-18); BUN/CREATININE RATIO 45.3 (10.0-20.0); CALCIUM 8.4 MG/DL (8.5-10.1); CHLORIDE 98 MMOL/L (99-107); CREATININE 2.87 MG/DL (0.60-1.10); GLUCOSE 131 MG/DL (70-104); POTASSIUM 5.2 MMOL/L (3.5-5.1); SODIUM 130 MMOL/L (135-145); TOTAL CARBON DIOXIDE 21.2 MMOL/L (24-32); eCRCL 22 ML/MIN; eGFR 22 ML/MIN
[2023-02-22 06:35] LABS: ALBUMIN/GLOBULIN RATIO 0.4 (1.1-1.5); TOTAL PROTEIN 5.6 G/DL (6.4-8.2)
[2023-02-22] MEDS: CefTRIAXone/D5W-Rocephin 1gm 50 ML IV SCH (07:58)
[2023-02-22] MEDS: furosemide 20MG tablet PO SCH ×2 (07:58→20:31)
[2023-02-22] MEDS: pantoprazole 40mg Tablet.DR PO SCH (07:58)
[2023-02-22] MEDS: spironolactone 25 MG tablet PO SCH (08:30)
[2023-02-22] MEDS: HYDROcodone/acetaminophen 5mg/325mg tablet PO PRN ×2 (15:12→20:46)
[2023-02-23] MEDS: normal saline 1000ml 1,000 ML IV SCH (00:50)
[2023-02-23 02:00] VITALS: BP 100/57; PULSE 94; RESP 16; TEMP 97.6; O2SAT 98
[2023-02-23 06:59] LABS: BASOPHILS % (AUTO) 0.2 % (0-1); EOSINOPHILS % (AUTO) 0 % (0-6); HEMATOCRIT 25.7 % (42.0-52.0); HEMOGLOBIN 8.6 g/dl (14.0-17.9); LYMPHOCYTES # (AUTO) 1.1 X10'3 (1.1-4.8); LYMPHOCYTES % (AUTO) 6.9 % (21-51); MEAN CORPUSCULAR HEMOGLOBIN 32.8 PG (27.0-31.0); MEAN CORPUSCULAR HGB CONC 33.3 g/dL (33.0-36.5); MEAN CORPUSCULAR VOLUME 98.3 FL (78-98); MEAN PLATELET VOLUME 7.9 FL (7.4-10.4); MONOCYTES # (AUTO) 1.7 X10'3 (0-0.9); MONOCYTES % (AUTO) 10.8 % (2-12); NEUTROPHILS # (AUTO) 12.7 X10'3 (1.8-7.7); NEUTROPHILS % (AUTO) 82.1 % (42-75); PLATELET COUNT 262 X10'3 (140-440); RED BLOOD COUNT 2.62 X10'6 (4.70-6.10); RED CELL DISTRIBUTION WIDTH 19.1 % (11.5-14.5); WHITE BLOOD COUNT 15.4 X10'3 (4.5-11.0)
[2023-02-23 07:36] LABS: ALANINE AMINOTRANSFERASE 947 U/L (12-78); ALBUMIN 1.5 G/DL (3.4-5.0); ALKALINE PHOSPHATASE 434 IU/L (46-116); ANION GAP 14 (8-16); ASPARTATE AMINO TRANSFERASE 529 U/L (10-37); BILIRUBIN,TOTAL 9.1 MG/DL (0.1-1.0); CALCIUM 8.3 MG/DL (8.5-10.1); CHLORIDE 97 MMOL/L (99-107); CREATININE 3.25 MG/DL (0.60-1.10); GLUCOSE 142 MG/DL (70-104); POTASSIUM 5.9 MMOL/L (3.5-5.1); SODIUM 130 MMOL/L (135-145); eCRCL 19 ML/MIN; eGFR 19 ML/MIN
[2023-02-23] MEDS: CefTRIAXone/D5W-Rocephin 1gm 50 ML IV SCH (07:49)
[2023-02-23] MEDS: pantoprazole 40mg Tablet.DR PO SCH (07:50)
[2023-02-23] MEDS: furosemide 20MG tablet PO SCH (07:50)
[2023-02-23 08:00] VITALS: RESP 20; O2SAT 99
[2023-02-23 08:02] LABS: ALBUMIN/GLOBULIN RATIO 0.4 (1.1-1.5); TOTAL PROTEIN 5.3 G/DL (6.4-8.2)
[2023-02-23 08:03] LABS: BLOOD UREA NITROGEN 156 MG/DL (7-18)
[2023-02-23 08:05] VITALS: BP 101/63; PULSE 84; RESP 20; TEMP 97.6; O2SAT 99
[2023-02-23] MEDS: spironolactone 25 MG tablet PO SCH (09:08)
[2023-02-23 11:05] VITALS: BP 94/32; PULSE 100; RESP 20; TEMP 97.6; O2SAT 96
[2023-02-23] MEDS: HYDROcodone/acetaminophen 5mg/325mg tablet PO PRN (11:45)
[2023-02-23 13:04] LABS: BILIRUBIN,URINE MODERATE (Neg); CLARITY,URINE SLIGHTLY CLOUDY (Clear); COLOR,URINE AMBER (Yellow); GLUCOSE, URINE NEGATIVE (Neg); KETONES,URINE TRACE mg/dl (Neg); LEUKOCYTE ESTERASE ,URINE NEGATIVE (Neg); NITRITES, URINE NEGATIVE (Neg); OCCULT BLOOD,URINE MODERATE (Neg); PROTEIN,URINE TRACE mg/dl (Neg)
[2023-02-23 13:10] LABS: SODIUM,URINE RANDOM < 15 MEQ/L; UA COLLECTION TYPE NON-SPECIFIED
[2023-02-23 13:12] LABS: BACTERIA,URINE FEW /HPF (Neg); MUCUS STRANDS NONE SEEN /LPF (Neg); RBC,URINE 20-50 /HPF (0-2); RENAL CELLS, URINE FEW /HPF; SQUAMOUS EPITHELIAL CELL,UR NONE SEEN /LPF (FEW); WBC,URINE 0-4 /HPF (0-4)
[2023-02-23 13:13] LABS: TRANSITIONAL EPI CELLS,URINE FEW /HPF
[2023-02-23 14:27] LABS: UA EOSINOPHILS NO EOS /HPF
[2023-02-23 15:08] VITALS: BP 88/50; PULSE 90; RESP 24; TEMP 98; O2SAT 98
[2023-02-23 17:20] VITALS: BP 72/50
[2023-02-23] MEDS ORDERED: albumin (human) 25% 100 ML IV solution IV SCH ×2 (17:40→20:00)
[2023-02-23 17:41] LABS: ABG BASE EXCESS -20.9 mmol/L (-2.0-2.0); ABG HCO3 6.6 mmol/L (22.0-26.0); ABG OXYGEN SATURATION 94.2 % (94-97); ABG PCO2 (T) 20.5 mmHg (35.0-48.0); ABG PH (T) 7.124 (7.340-7.440); ABG PO2 (T) 91.1 mmHg (75.0-100.0); ALLEN'S TEST POSITIVE; FCOHb 1.2 % (0.0-3.9); FHHb 5.7 % (0.0-5.0); FMetHb 0.3 % (0.0-1.5); FO2Hb 92.8 % (94-97); MODE ROOM AIR; PATIENT TEMPERATURE 36.7; TOTAL HEMOGLOBIN 8.4 G/dl (14.0-17.9)
[2023-02-23 18:23] LABS: ALBUMIN 1.4 G/DL (3.4-5.0); ALKALINE PHOSPHATASE 449 IU/L (46-116); BILIRUBIN,TOTAL 9.6 MG/DL (0.1-1.0); CALCIUM 8.8 MG/DL (8.5-10.1); CREATININE 4.12 MG/DL (0.60-1.10); GLUCOSE 51 MG/DL (70-104); MAGNESIUM 2.3 MG/DL (1.5-2.4); eCRCL 15 ML/MIN; eGFR 14 ML/MIN
[2023-02-23 18:41] LABS: ALBUMIN/GLOBULIN RATIO 0.4 (1.1-1.5); ANION GAP 39 (8-16); CHLORIDE 86 MMOL/L (99-107); SODIUM 133 MMOL/L (135-145)
[2023-02-23] MEDS ORDERED: calcium chloride 100 MG/1 ML inj IV ONE (18:55)
[2023-02-23] MEDS ORDERED: albuterol 2.5 MG/3 ML nebule CONTNEB SCH (18:55)
[2023-02-23] MEDS ORDERED: dextrose 50%-water 50ml dispensing syringe IV ONE (18:55)
[2023-02-23] MEDS ORDERED: insulin regular, human U-100 3ml vial - multi-dose IV ONE (18:55)
[2023-02-23 19:01] LABS: ALANINE AMINOTRANSFERASE 2848 U/L (12-78); BLOOD UREA NITROGEN 161 MG/DL (7-18); BUN/CREATININE RATIO 39.1 (10.0-20.0); PHOSPHORUS 10.5 MG/DL (2.3-4.5)
[2023-02-23 19:09] LABS: TOTAL CARBON DIOXIDE 8.1 MMOL/L (24-32)
[2023-02-23 19:27] LABS: ASPARTATE AMINO TRANSFERASE 5161 U/L (10-37)
== END 2023-02-23 23:00 | DRG 871 ==
LOC: ER 15:26 → ED HOLD 02-20 04:43 → PCU 3S 02-20 11:21
PROVIDERS: ADMIT Family Medicine; ATTEND Internal Medicine
PROC: 0W9G3ZZ Drainage of Peritoneal Cavity, Percutaneous Approach (ICD-10-PCS; principal; 2023-02-20)
DX: A41.9 Sepsis, unspecified organism (principal); J96.00 Acute respiratory failure, unspecified whether with hypoxia or hypercapnia; K76.7 Hepatorenal syndrome; N18.6 End stage renal disease; K65.2 Spontaneous bacterial peritonitis; K76.6 Portal hypertension; E87.1 Hypo-osmolality and hyponatremia; N17.9 Acute kidney failure, unspecified; E87.20 Acidosis, unspecified; I13.0 Hypertensive heart and chronic kidney disease with heart failure and stage 1 through stage 4 chronic kidney disease, or unspecified chronic kidney disease; R64 Cachexia; K70.31 Alcoholic cirrhosis of liver with ascites; Z66 Do not resuscitate; K72.10 Chronic hepatic failure without coma; E88.09 Other disorders of plasma-protein metabolism, not elsewhere classified; E87.6 Hypokalemia; E87.8 Other disorders of electrolyte and fluid balance, not elsewhere classified; K80.20 Calculus of gallbladder without cholecystitis without obstruction; N18.2 Chronic kidney disease, stage 2 (mild); E86.0 Dehydration; E87.5 Hyperkalemia; R16.0 Hepatomegaly, not elsewhere classified; N13.9 Obstructive and reflux uropathy, unspecified; R32 Unspecified urinary incontinence; I46.9 Cardiac arrest, cause unspecified; I50.9 Heart failure, unspecified; M19.90 Unspecified osteoarthritis, unspecified site; E86.1 Hypovolemia; D64.9 Anemia, unspecified; Z88.2 Allergy status to sulfonamides; Z87.891 Personal history of nicotine dependence; Z79.899 Other long term (current) drug therapy; Z68.28 Body mass index [BMI] 28.0-28.9, adult
CPT/HCPCS: 36415; 36600; 49083; 71045; 76770; 76942; 80053; 81001; 81003; 82140; 82570; 82803; 82945; 83605; 83615; 83690; 83735; 83880; 84100; 84132; 84145; 84156; 84157; 84300; 84443; 84484; 85007; 85018; 85025; 85610; 85651; 85730; 87040; 87070; 87075; 87207; 89051; 93306; 94760; 94799; 96374; 96375; 97161; 97530; 99285; A4340; A4615; A6212; A6213; A6250; C1758; G0378; J0696; J2270; J2405; J3490; J7030; P9047